=== PATIENT | male | born 1975 | race Caucasian/White ===

== ENCOUNTER 2019-03-11 10:49 | Inpatient (IN) | payer OTHER ==
[~2019-03-11 10:49] MED LIST: EPINEPHrine SYR 0.1MG/ML* SYRINGE ONE
[2019-03-11] MEDS ORDERED: Calcium CHLORIDE 10% SYRINGE* 1 GM/10 ML ONE (10:50)
[2019-03-11] MEDS ORDERED: Amiodarone IV VIAL* 50 MG/ML 3 ML VIAL (150 MG) ONE (10:54)
[2019-03-11] MEDS ORDERED: Dextrose 50% Syringe 50 ML* 25 GM/50 ML SYRINGE ONE (10:56)
[2019-03-11] MEDS ORDERED: Lidocaine 2% (CARDIAC)* 20 MG/ML 5 ML SYRINGE (100 MG) ONE ×4 (11:00→12:55)
--- NOTE | 2019-03-11 11:01 | ED ---
Cardiac Resuscitation - HPI Summary HPI Summary: A 44 y/o male brought in by [facility] presents to [facility] with a chief complaint of an ABC alert that was called at 10:41 and EMS arrived in the ED at 10:47. The patient was intubated in the field and went into V-fib en route. Per EMS, the patient was shocked three times and given epi. The EKG reportedly showed a possible inferior infarct. CPR was performed en route and continued in the ED. Dr. Jean confirmed intubation with direct visualization. Per police records clerk, the patient was complaining of CP before he dropped, fell and hit his head. CPR was reportedly not performed until 5 minutes after the patient collapsed when EMS arrived on the scene. Central line had begun to be placed at 11:13. . - History of Current Complaint Stated Complaint: ABC Hx Obtained From: EMS Hx From Patient Unobtainable Due To: Extremis Onset/Duration: Minutes/Hours: Arrest Witnessed: Yes - Allergies/Home Medications Allergies/Adverse Reactions: Allergies Allergy/AdvReac Type Severity Reaction Status Date / Time No Known Allergies Allergy Verified 03/11/19 11:24 Home Medications: Home Medications Cyclobenzaprine TAB* [Flexeril 10 MG TAB*] 10 mg PO TID 03/11/19 [History Confirmed 03/11/19] - Past Medical History Past Medical History: Unobtainable Due to Extremis - Family History Family History: Unobtainable Due to Extremis - Social History Social History: Unobtainable Due to Extremis - Review of Systems Review of Systems: Unobtainable Due to Extremis, Other: - Pt reportedly complained of CP before he collapsed Physical Examination - Summary Physical Exam Summary: Appearance: Unresponsive, CPR in progress Skin: Warm, dry, no obvious rash Eyes: Pupils fixed and dilated ENT: trachea midline Neck: Supple, nontender, no JVD. Respiratory: Intubated (being bagged) Cardiovascular: No pulses palpable Abdomen: Soft, ND Musculoskeletal: No signs of trauma Neurological: unresponsive Psychiatric: deferred - Physical Examination Triage Information Reviewed: Yes Procedures - Central Line Right Femoral Central Line Lumen: triple Central Line Procedure: betadine prep, sterile drapes applied, sterile dressing applied Central Line Position: femoral (R) Complications: none Central Line Post Position: sutured, good blood return Diagnostics - Laboratory Result Diagrams: 03/11/19 11:38 03/11/19 11:38 Lab Statement: Any lab studies that have been ordered have been reviewed, and results considered in the medical decision making process. - Radiology CXR Radiology Interpretation Completed By: Radiologist Summary of Radiographic Findings: 1. Normally positioned endotracheal tube. 2. The enteric tube courses into the stomach and out of [id number]. 3. Right greater than left perihilar predominant airspace opacification which could be. related to developing pulmonary edema or infiltrate. ED physician has reviewed this imaging report. - EKG 11:09 Cardiac Rate: Other Rate Summary of EKG Findings: EKG at 11:09 showed Wide QRS tachy arrhythmia at 80 bpm. Re-Evaluation - Re-Evaluation First Eval Re-Evaluation Time: 11:57 Change: Improved Comment: After ROSC patient moving arms and head. Updated the patient's about the situation. She reports that the patient had been complaining of chest pain for the past several weeks but had not sought medical attention. To be placed on propofol Second Eval Re-Evaluation Time: 12:31 Change: Improved Comment: When stable check a CTA chest for PE, as well as CT head given altered mental status and possible fall. manager assurance paged and aware patient for possible laboratory tech Third Eval Re-Evaluation Time: 12:36 Change: Unchanged Comment: ABC alert was called again, patient in vtach, shocked at 200J x1, back in wie QRS. Going to laboratory tech Cardiac Resus. Course/Dx - Course Assessment/Plan: Cardiac arrest. [id number] gentleman presents in cardiac arrest. On arrival to emergency department CPR in progress, V. fib on the monitor, please see note regarding timing. Patient given 2 bags saline, D50, 3 lidocaine, 1 Amio, 4 Epi, 3 Lido, 1 1g of calcium. Obtained ROSC, post rosc EKG with a wide QRS tachycardia arrhythmia. No obvious STEMI. Will touch base with interventional cardiology regarding Department Assistant. ICU attending at it. Central and arterial lines placed. Patient on amiodarone drip as well as Levophed. To be admitted to the ICU. CXR w pulm edema/aspiration. - Diagnoses Provider Diagnoses: Cardiac arrest - Provider Notifications Discussed Care Of Patient With: Devin Cheek Time Discussed With Above Provider: 11:45 Instructed by Provider To: Admit As Inpatient - Critical Care Time Critical Care Time: 30-74 min - 60 mins Discharge - Sign-Out/Discharge Documenting (check all that apply): Patient Departure - admit Patient Received Moderate/Deep Sedation with Procedure: No - Discharge Plan Condition: Critical Disposition: ADMITTED TO [facility] - Billing Disposition and Condition Condition: CRITICAL Disposition: Admitted to [facility] - Attestation Statements Document Initiated by Rubene: Yes Documenting Scribe: Bryan Kraft Provider For Whom Shaye is Documenting (Include Credential): Prabhakar Jean MD Scribe Attestation: IBryan, scribed for Prabhakar Jean MD on 03/11/19 at 1333. Scribe Documentation Reviewed: Yes Provider Attestation: The documentation as recorded by the Bryan montez accurately reflects the service I personally performed and the decisions made by , Prabhakar Jean MD Status of Scribe Document: Viewed
[2019-03-11] MEDS ORDERED: NS 0.9% 1000 ML** 1,000 ML IV ONE ×2 (11:32→11:56)
[2019-03-11] MEDS ORDERED: Propofol* 500 MG/50 ML BTL ONE (11:44)
[2019-03-11 11:56] LABS: Hematocrit 47 % (42-52); Hemoglobin 15.4 g/dL (14.0-18.0); Mean Corpuscular HGB Conc 33 g/dL (31-36); Mean Corpuscular Hemoglobin 31 pg (27-31); Mean Corpuscular Volume 96 fL (80-94); Platelet Count 163 10^3/uL (150-450); Red Blood Count 4.94 10^6 /uL (4.18-5.48); Red Cell Distribution Width 14 % (10-15); White Blood Count 19.4 10^3/uL (3.5-10.8)
[2019-03-11] MEDS ORDERED: Magnesium Sulfate 2 GM IV* 2 GM/50 ML BAG IVPB ONE (11:58)
[2019-03-11] MEDS ORDERED: Amiodarone 360 MG IVPREMIX* 360 MG/200 ML BAG IV ONE ×2 (11:59→12:06)
[2019-03-11] MEDS ORDERED: Norepinephrine 16MCG/ML IVPRE* 4,000 MCG/250 ML BAG IV SCH ×2 (12:00→15:55)
[2019-03-11] MEDS ORDERED: Propofol* 100 ML IV SCH ×2 (12:00→15:55)
[2019-03-11] MEDS ORDERED: Amiodarone 360 MG IVPREMIX* 360 MG/200 ML BAG IV SCH ×2 (12:00→18:00)
[2019-03-11] MEDS ORDERED: EPINEPHrine SYR 0.1MG/ML* SYRINGE ONE (12:02)
[2019-03-11 12:07] LABS: Albumin 2.9 g/dL (3.2-5.2); CO2 Carbon Dioxide 20 mmol/L (22-32); Calcium 9.7 mg/dL (8.6-10.3); Chloride 98 mmol/L (101-111); Sodium 140 mmol/L (135-145)
[2019-03-11] MEDS: Magnesium Sulfate 2 GM IV* 2 GM/50 ML BAG IVPB ONE ×2 (12:10→12:14)
[2019-03-11 12:13] LABS: ALT 127 U/L (7-52); Albumin/Globulin Ratio 1.3 (1-3); Alkaline Phosphatase 128 U/L (34-104); BUN/Creatinine Ratio 12.3 (8-20); Blood Urea Nitrogen 20 mg/dL (6-24); Creatine Kinase 211 U/L (10-223); EGFR African American 56.2 (>60); EGFR Non-African American 46.4 (>60); Globulin 2.2 g/dL (2-4); Glucose 497 mg/dL (70-100); Total Protein 5.1 g/dL (6.4-8.9)
[2019-03-11 12:14] LABS: Activated Partial Thrombo Time 58.6 seconds (26.0-38.0); INR 1.16 (0.82-1.09)
[2019-03-11 12:17] LABS: CKMB ng/mL 9.9 ng/mL (0.6-6.3)
[2019-03-11 12:18] LABS: Anion Gap 22 mmol/L (2-11); Troponin I 0.71 ng/mL (<0.04)
[2019-03-11 12:27] LABS: ABS Basophils 0.1 10^3/ul (0-0.2); ABS Eosinophils 0.7 10^3/ul (0-0.6); ABS Lymphocytes 8.9 10^3/ul (1.0-4.8); ABS Monocytes 0.4 10^3/ul (0-0.8); ABS Neutrophils 9.3 10^3/ul (1.5-7.7); Eosinophil % 3.4 %; Lymphocyte % 45.7 %; Nucleated Red Blood Cells % 0.1
[2019-03-11] MEDS ORDERED: Sodium Bicarbonate 8.4% IV* 50 ML VIAL IV ONE ×2 (12:27)
[2019-03-11 12:42] LABS: TSH (Thyroid Stimulating Horm) 11.25 mcIU/mL (0.34-5.60)
[2019-03-11] MEDS ORDERED: Amiodarone IV VIAL* 0 ML ONE (12:42)
[2019-03-11] MEDS ORDERED: Sodium Bicarbonate 8.4%* 50 ML SYRINGE ONE (12:49)
[2019-03-11] MEDS ORDERED: Ticagrelor* 90 MG TAB PO ONE (12:52)
[2019-03-11] MEDS ORDERED: Aspirin EC TAB* 81 MG TAB.EC ONE (12:52)
[2019-03-11] MEDS ORDERED: Heparin 2 UNITS/ML IVPREMIX* 4,000 UNIT/2,000 ML BAG IV ONE (13:03)
[2019-03-11] MEDS ORDERED: Lidocaine 1% INJ* 10 MG/ML 30 ML SDV ONE (13:04)
[2019-03-11] MEDS ORDERED: Iodixanol 320 (CONTRAST) 100 ML SDV ONE ×4 (13:04→14:53)
[2019-03-11] MEDS ORDERED: Propofol* 100 ML ONE (13:04)
[2019-03-11] MEDS ORDERED: VERAPAMIL 2.5 MG/ML 2 ML VIAL ** 5 mg/2 ml ONE (13:08)
[2019-03-11] MEDS ORDERED: Heparin 2 UNITS/ML IVPREMIX* 3,000 UNIT/1,500 ML BAG IV ONE (13:08)
[2019-03-11] MEDS ORDERED: nitroGLYCERIN DRIP* 0 MCG/0 ML BTL ONE (13:08)
[2019-03-11] MEDS ORDERED: Heparin(*) 1000 UNIT/ML 10 ML VIAL CATH LAB IV ONE ×2 (13:08→13:50)
[2019-03-11] MEDS ORDERED: VECURONIUM BROMIDE 10 MG INJ ONE (13:10)
[2019-03-11] MEDS ORDERED: Norepinephrine 16MCG/ML IVPRE* 4,000 MCG/250 ML BAG IV ONE (13:23)
[2019-03-11] MEDS ORDERED: Amiodarone IV VIAL* 3 ML ONE (14:20)
[2019-03-11] MEDS ORDERED: Adenosine* 3 MG/ML VIAL ONE (14:37)
[2019-03-11] MEDS ORDERED: VASOPRESSIN 20 UNITS/ML 1 ML VIAL ONE ×2 (14:45→14:47)
[2019-03-11] MEDS ORDERED: NitroPRUSSide* 25 MG/ML 2 ML VIAL IV ONE (14:45)
[2019-03-11] MEDS ORDERED: Eptifibatide IV (Load dose)(*) 2 MG/ML 10 ml VIAL ONE (14:56)
[2019-03-11] MEDS ORDERED: Eptifibatide (*) 100 ML ONE ×2 (14:56→19:30)
[2019-03-11] MEDS ORDERED: Vasopressin* 100 UNITS in D5W 250 ML BAG* 245 ML IV SCH ×2 (15:00→15:55)
--- NOTE | 2019-03-11 15:12 | ECHO ---
*[facility]* [place] [address] Fax #: [phone] Limited Transthoracic Echocardiogram Patient: Gideon Newby : 1975 Study Date: 03/11/2019 Age: 44 Gender: M HR: Height: 70 in /177.8 cm BSA: 2.17 m^2 Weight: 219.5 lb /99.8 kg BMI: 31.6 kg/m^2 *Concrete Bucket Loader: Justina Duffy [facility] *Reading Physician: * Jameel Loera MD Indications: Cardiac Arrest. History: No known history at this time. Conclusions Summary: - Left ventricle: The cavity size is normal. Wall thickness is mildly increased. Systolic function is severely reduced. The estimated ejection fraction is 20-25%. Severe diffuse hypokinesis with regional variations. - No hemodynamic significant mitral regurgitation on limited imaging noted. Recommendations: Patient with ACS and cardiac arrest. Limited study. Study data: Transthoracic echocardiogram, limited study. Procedure: Transthoracic echocardiography was performed. Image quality was adequate. Location: Emergency department. Patient status: Inpatient. Patient room number: 14. Findings Left ventricle: The cavity size is normal. Wall thickness is mildly increased. Systolic function is severely reduced. The estimated ejection fraction is 20-25%. Severe diffuse hypokinesis with regional variations. Measurements Left ventricle Value Ref Right ventricle Value Ref CHERI, LAX 4.2 cm 4.2 - 5.8 CHERI, LAX 2.1 cm ESD, LAX 3.4 cm 2.5 - 4.0 FS, LAX (L) 20 % 25 - 43 Left atrium Value Ref PW, ED, LAX (H) 1.2 cm 0.6 - 1.0 AP dim, ES (L) 2.70 cm 3.00 - 4.00 PW/ID, ED 0.34 --------- Ventricular septum Value Ref IVS, ED (H) 1.4 cm 0.6 - 1.0 Legend: (L) and (H) mariano values outside specified reference range. Prepared and electronically signed by Jameel Loera MD 03/11/2019 15:11
[2019-03-11] MEDS ORDERED: Piperacillin/Tazobac ADVAN(*) 3.375 GM in NS 0.9% 100 ML* 100 ML IVPB ONE (15:36)
[2019-03-11] MEDS ORDERED: Atorvastatin* 80 MG TAB PO ONE (15:49)
[2019-03-11] MEDS ORDERED: Nitroglycerin TAB 0.4 MG* 0.4 MG TAB SL PRN (15:49)
[2019-03-11] MEDS ORDERED: Acetaminophen ADULT LIQ* 650 MG/20.3 ML UDC G TUBE PRN (15:53)
[2019-03-11] MEDS ORDERED: fentaNYL* 50 MCG/ML 2 ML VIAL (100 MCG VIAL) IV PRN (15:56)
[2019-03-11] MEDS ORDERED: LORazepam INJ* 2 MG/ML 1 ML VIAL IV PUSH PRN (15:56)
[2019-03-11] MEDS ORDERED: Lorazepam PYXIS KEY PRN (15:57)
[2019-03-11] MEDS ORDERED: Meperidine Ampule* 100 MG/2 ML AMPUL IV SLOW PU PRN (15:58)
[2019-03-11] MEDS ORDERED: NS 0.9% 1000 ML** 1,000 ML IV SCH (16:00)
[2019-03-11] MEDS ORDERED: Chlorhexidine MOUTHWASH 0.12%* 15 ML UDC TOPICAL SCH (16:00)
--- NOTE | 2019-03-11 16:03 | HP ---
H&P (Free Text) History and Physical: History and Physical -- Critical Care Limitations in history/physical: intubated, post arrest HPI: 44y M with no pmhx; had complaints of chest pain intermittently for weeks. Today reported to in morning he had chest pain, supposedly recieved ASA at work. At work he had continued chest pain and was going to be given tylenol. He was then witnessed to collapse at [employer] at work, hit his head on the ground. He was unresponsive, EMS called, responded in a few min, found to be in VT/VF, CPR started, totaled for 15min en route to [facility] ER. in ER he was continued with CPR, multiple epi/calclium/amio given for VT/VF and defibrillated , intubated. Almost 30-40min of additional ER CPR done with ROSC achieved. He was starting to move, dilated but more reactive pupils. Intermittent VF again requiring more defibrillation in ER. Interventional cardiology called for suspected ACS, EKG showed wide complex but no clear ST changes. Given history he was given asa/brillinta and taken to director of laboratory operations. Found to have occluded pLAD 100%, PCI with SHALOM to pLAD x1 and SHALOM x1 to mLAD done, reoccluded pLAD stent, IABP placed, given integrillin. ED/floor Course: as above ROS: ROS unable to be obtained 2/2 to intubated/sedated/unresponsive state PMHx: none PSHx: none Family History: none significant Social History: , 5 kids; social alcohol, ex-smoker in teenage years. Allergies: NKDA Home Medications: Cyclobenzaprine TAB* [Flexeril 10 MG TAB*] 10 mg PO TID 03/11/19 [History Confirmed 03/11/19] Tele: Vt/VT in ER, NSR Vitals: Vital Signs Temp 96.4 F 03/11/19 13:57 Pulse 127 03/11/19 13:57 Resp 24 03/11/19 13:57 BP 133/75 03/11/19 13:57 Pulse Ox 69 03/11/19 13:57 Intake & Output 03/10/19 03/11/19 03/11/19 18:59 06:59 18:59 Weight 99.79 kg O2/Vent: AC 30/600/+15/100% Infusions: levophed, vasopressin, propofol, AMio to be started, Integrillin to be started Current Medications: Acetaminophen (Tylenol Adult Liq*) 650 mg G TUBE Q4H PRN PRN Reason: .TEMP>TARGET Aspirin (Aspirin 81 Mg Chew Tab*) 81 mg PO DAILY [facility] Chlorhexidine Gluconate (Peridex Mouth Wash 0.12%*) 15 ml TOPICAL Q4H [facility] Fentanyl Citrate (Fentanyl*) 25 mcg IV Q2H PRN PRN Reason: .SHIVERING Heparin Sodium (Porcine) (Heparin Flush Picc/Ml/Cvc(*)) 0 ml FLUSH 0600,1800 [facility]; Protocol Amiodarone HCl (Nexterone 360 Mg/200 Ml Ivpremix*) 360 mg in 200 mls @ 33.333 mls/hr IV ONCE ONE Stop: 03/11/19 17:58 Last Admin: 03/11/19 12:23 Dose: 33.333 mls/hr Amiodarone HCl (Nexterone 360 Mg/200 Ml Ivpremix*) 360 mg in 200 mls @ 16.667 mls/hr IV Q12H [facility] Stop: 03/12/19 17:59 Piperacillin Sod/Tazobactam (Sod 3.375 gm/ Sodium Chloride) 100 mls @ 25 mls/ hr IVPB Q8H [facility] Norepinephrine Bitartrate (Levophed 16 Mcg/Ml Premix*) 4,000 mcg in 250 mls @ 18.75 mls/hr IV .INITIAL RATE [facility]; Protocol Propofol (Diprivan*) 100 mls @ 11.975 mls/hr IV .(Initial Rate) [facility]; Protocol Vasopressin 100 units/ (Dextrose) 250 mls @ 6 mls/hr IV Q41H [facility]; Protocol Sodium Chloride (Ns 0.9% 1000 Ml) 1,000 mls @ 75 mls/hr IV PER RATE [facility] Lorazepam (Ativan Inj*) 2 mg IV PUSH Q3H PRN PRN Reason: . Meperidine HCl (Demerol Ampule*) 25 mg IV SLOW PU Q1H PRN PRN Reason: .SHIVERING Miscellaneous (Ativan Pyxis Tripp) 1 ea N/A .PYXIS TRIPP PRN PRN Reason: PER PROTOCOL Nitroglycerin (Nitroglycerin Tab 0.4 Mg*) 0.4 mg SL Q5M PRN PRN Reason: ANGINA Ticagrelor (Brilinta*) 90 mg PO BID [facility] Physical Exam: Constitutional: intubated, sedated, no distress, no diaphoresis Head: normocephalic, atraumatic Eyes: no pallor, no icterus ENT: moist mucous membranes Neck: soft, supple, no jvd CVS: normal rate, regular, no murmur Resp: bilateral air entry, +rhales, no wheeze, no rhonchi, no acc muscle use Abdomen/GI: soft, nondistended, BS+ Ext/Msk: warm, pulses+, no edema Skin: intact, warm Neuro: intubated, sedated, pupils dilated but mildly reactive, gag+ in ER, cough + in ER, spontaneous movements, breathing over vent Labs: Laboratory Results - last 24 hr 03/11/19 03/11/19 03/11/19 11:38 11:38 11:38 WBC 19.4 H RBC 4.94 Hgb 15.4 Hct 47 MCV 96 H MCH 31 MCHC 33 RDW 14 Plt Count 163 MPV 9.0 Neut % (Auto) 48.0 Lymph % (Auto) 45.7 Redwood % (Auto) 2.3 Eos % (Auto) 3.4 Baso % (Auto) 0.6 Absolute Neuts (auto) 9.3 H Absolute Lymphs (auto) 8.9 H Absolute Monos (auto) 0.4 Absolute Eos (auto) 0.7 H Absolute Basos (auto) 0.1 Absolute Nucleated RBC 0.0 Immature Gran % 6.0 Neutrophils % 42.0 Band Neutrophils % 2.0 Lymphocytes % 46.0 Monocytes % 1.0 Eosinophils % 4.0 Basophils % 1.0 Myelocytes % 4.0 H Nucleated RBC % 0.1 Normal RBC Morphology Normal INR (Anticoag Therapy) 1.16 H APTT 58.6 H POC Activ Clotting Time D-Dimer, Quantitative > 1050 H Patient Temperature ABG pH ABG pH (Temp Correct) ABG pCO2 ABG pCO2 (Temp Corrct ABG pO2 ABG pO2 (Temp Correct ABG HCO3 ABG O2 Saturation ABG Base Excess Respiration Rate O2 Delivery Device Ventilator Type Vent Mode FiO2 Inspiratory Time PEEP Pressure Support Pressure Control EPAP IPAP BiPAP Sodium 140 Potassium TNP Chloride 98 L Carbon Dioxide 20 L Anion Gap 22 H BUN 20 Creatinine 1.63 H Est GFR ( Amer) 56.2 Est GFR (Non-Af Amer) 46.4 BUN/Creatinine Ratio 12.3 Glucose 497 H Lactic Acid Calcium 9.7 Magnesium TNP Total Bilirubin 0.20 AST TNP ALT 127 H Alkaline Phosphatase 128 H Total Creatine Kinase 211 CK-MB (CK-2) 9.9 H Troponin I 0.71 H* B-Natriuretic Peptide Total Protein 5.1 L Albumin 2.9 L Globulin 2.2 Albumin/Globulin Ratio 1.3 TSH 11.25 H Blood Type Antibody Screen 03/11/19 03/11/19 03/11/19 11:38 11:38 11:38 WBC RBC Hgb Hct MCV MCH MCHC RDW Plt Count MPV Neut % (Auto) Lymph % (Auto) Redwood % (Auto) Eos % (Auto) Baso % (Auto) Absolute Neuts (auto) Absolute Lymphs (auto) Absolute Monos (auto) Absolute Eos (auto) Absolute Basos (auto) Absolute Nucleated RBC Immature Gran % Neutrophils % Band Neutrophils % Lymphocytes % Monocytes % Eosinophils % Basophils % Myelocytes % Nucleated RBC % Normal RBC Morphology INR (Anticoag Therapy) APTT POC Activ Clotting Time D-Dimer, Quantitative Patient Temperature ABG pH ABG pH (Temp Correct) ABG pCO2 ABG pCO2 (Temp Corrct ABG pO2 ABG pO2 (Temp Correct ABG HCO3 ABG O2 Saturation ABG Base Excess Respiration Rate O2 Delivery Device Ventilator Type Vent Mode FiO2 Inspiratory Time PEEP Pressure Support Pressure Control EPAP IPAP BiPAP Sodium Potassium Chloride Carbon Dioxide Anion Gap BUN Creatinine Est GFR ( Amer) Est GFR (Non-Af Amer) BUN/Creatinine Ratio Glucose Lactic Acid 16.4 H* Calcium Magnesium Total Bilirubin AST ALT Alkaline Phosphatase Total Creatine Kinase CK-MB (CK-2) Troponin I B-Natriuretic Peptide 135 H Total Protein Albumin Globulin Albumin/Globulin Ratio TSH Blood Type B Negative Antibody Screen Negative 03/11/19 03/11/19 03/11/19 12:05 13:00 13:45 WBC RBC Hgb Hct MCV MCH MCHC RDW Plt Count MPV Neut % (Auto) Lymph % (Auto) Redwood % (Auto) Eos % (Auto) Baso % (Auto) Absolute Neuts (auto) Absolute Lymphs (auto) Absolute Monos (auto) Absolute Eos (auto) Absolute Basos (auto) Absolute Nucleated RBC Immature Gran % Neutrophils % Band Neutrophils % Lymphocytes % Monocytes % Eosinophils % Basophils % Myelocytes % Nucleated RBC % Normal RBC Morphology INR (Anticoag Therapy) APTT POC Activ Clotting Time 215 D-Dimer, Quantitative Patient Temperature Not Reportable Not Reportable ABG pH 7.04 L* 7.30 L ABG pH (Temp Correct) Not Reportable ABG pCO2 43 35 ABG pCO2 (Temp Corrct Not Reportable ABG pO2 71 L 43 L* ABG pO2 (Temp Correct Not Reportable ABG HCO3 10.2 L 17.7 L ABG O2 Saturation 91.9 L 73.6 L ABG Base Excess -18.6 L -8.4 L Respiration Rate 20 Not Reportable O2 Delivery Device vent vent Ventilator Type 500 Not Reportable Vent Mode cmv Not Reportable FiO2 100 Not Reportable Inspiratory Time Not Reportable Not Reportable PEEP 10 Not Reportable Pressure Support Not Reportable Not Reportable Pressure Control Not Reportable Not Reportable EPAP Not Reportable Not Reportable IPAP Not Reportable Not Reportable BiPAP Not Reportable Not Reportable Sodium Potassium Chloride Carbon Dioxide Anion Gap BUN Creatinine Est GFR ( Amer) Est GFR (Non-Af Amer) BUN/Creatinine Ratio Glucose Lactic Acid Calcium Magnesium Total Bilirubin AST ALT Alkaline Phosphatase Total Creatine Kinase CK-MB (CK-2) Troponin I B-Natriuretic Peptide Total Protein Albumin Globulin Albumin/Globulin Ratio TSH Blood Type Antibody Screen 03/11/19 03/11/19 13:59 14:20 WBC RBC Hgb Hct MCV MCH MCHC RDW Plt Count MPV Neut % (Auto) Lymph % (Auto) Redwood % (Auto) Eos % (Auto) Baso % (Auto) Absolute Neuts (auto) Absolute Lymphs (auto) Absolute Monos (auto) Absolute Eos (auto) Absolute Basos (auto) Absolute Nucleated RBC Immature Gran % Neutrophils % Band Neutrophils % Lymphocytes % Monocytes % Eosinophils % Basophils % Myelocytes % Nucleated RBC % Normal RBC Morphology INR (Anticoag Therapy) APTT POC Activ Clotting Time 393 D-Dimer, Quantitative Patient Temperature ABG pH 7.29 L ABG pH (Temp Correct) ABG pCO2 29 L ABG pCO2 (Temp Corrct ABG pO2 236 H ABG pO2 (Temp Correct ABG HCO3 16.2 L ABG O2 Saturation 100.0 H ABG Base Excess -11.2 L Respiration Rate O2 Delivery Device Ventilator Type Vent Mode FiO2 Inspiratory Time PEEP Pressure Support Pressure Control EPAP IPAP BiPAP Sodium Potassium Chloride Carbon Dioxide Anion Gap BUN Creatinine Est GFR ( Amer) Est GFR (Non-Af Amer) BUN/Creatinine Ratio Glucose Lactic Acid Calcium Magnesium Total Bilirubin AST ALT Alkaline Phosphatase Total Creatine Kinase CK-MB (CK-2) Troponin I B-Natriuretic Peptide Total Protein Albumin Globulin Albumin/Globulin Ratio TSH Blood Type Antibody Screen Imaging: CXR 03/11 - ett above meg, ngt+; pulmonary edema++ Assessment: 44y M with no pmhx; had complaints of chest pain intermittently for weeks. Today reported to in morning he had chest pain, supposedly recieved ASA at work. At work he had continued chest pain and was going to be given tylenol. He was then witnessed to collapse at [employer] at work, hit his head on the ground. He was unresponsive, EMS called, responded in a few min, found to be in VT/VF, CPR started, totaled for 15min en route to [facility] ER. in ER he was continued with CPR, multiple epi/calclium/amio given for VT/VF and defibrillated , intubated. Almost 30-40min of additional ER CPR done with ROSC achieved. He was starting to move, dilated but more reactive pupils. Intermittent VF again requiring more defibrillation in ER. Interventional cardiology called for suspected ACS, EKG showed wide complex but no clear ST changes. Given history he was given asa/brillinta and taken to director of laboratory operations. Found to have occluded pLAD 100%, PCI with SHALOM to pLAD x1 and SHALOM x1 to mLAD done, reoccluded pLAD stent, IABP placed, given integrillin. 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 -Cardiogenic Shock; s/p IABP 03/11 -Acute hypoxic respiratory failure, intubated 03/11 -JOSE -Metabolic acidosis/lactic acidosis -Elevated LFTs Plan: Neuro- -VT/VF arrest; ROSC+ ~1 hours -hemodyn stable, CT brain pending; plan for therapeutic hypothermia for neuro protection; target temp 35C -propofol for sedation; raas -5 -monitor for shivering; TTM protocol -neurochecks; neurology consult -Delirium prec CVS- -STEMI; s/p PCI as above; cont DAPT/statin -integrillin infusion for 6 hours -start heparin IV 500u/hr for IABP, increase 4 hrs after integrillin stopped -Maintain IABP 1:1 -Cont levophed and vasopressin -TTE reviewed in ER - new acute lv systolic dysfunction -check stat cbc now -no BB -trend trop/LA -Titrate Pressors to Maintain MAP>65 Resp- -intubated 100% fio2 peep 15 -CXR 8/2 with pulm edema -will need diuretics once stabilized -empiric aspiration abx ordered -abg a4h -Wean Fio2 to keep sat>92% -Bronchodilators PRN, Aspiration prec, Pulmonary Toilet -VAP bundle ID- afebrile. wbc elevated but may be from arrest/shock -LA elevated from shock -CXR with edema -empiric Zosyn for aspiration coverage (day#1) GI- -NPO -GI prophylaxis Renal- -JOSE; K okay; metabolic acidosis; all likely from acute shock/ischemic injury -may be underlying chronic? -check renal ultrasound -IVF PRN -q4h bmp -strict I/O, replete to keep K>4, Mg>2 -yoder as indicated Heme- hg stable, plt stable -DAPT for CAD/PCI; integrillin infusion for 6 hours -IV heparin to be started for IABP Endo- Maintain BG<200, insulin protocol as needed; check tsh/hga1c/lipid panel Musculsk- pressure ulcer prophylaxis. Bedrest. Wounds- none Nutrition-NPO DVT prophylaxis: SCD, IV heparin GI prophylaxis: h2b Central Line: Right fem TLC 8/2 Arterial Line:Right fem 8/2 sheath; left fem 8/2 IABP Yoder Cathetor: yes Disposition: Admit to ICU; expected LOS>2 midnights; Patient requires Critical Care/ICU for cardiac arrest, stemi, respiratory failure Patient Clinical Status: critical Code Status: full code Total Critical Care time is 90 minutes, excluding procedures/teaching Devin Cheek MD [employer] (Electronically Signed)
--- NOTE | 2019-03-11 16:26 | OP ---
Operative Report - Blank - Operative Report Date of Operation: 03/11/19 Note: Arterial Line Procedure Note ( IN ER) Indication: frequent arterial blood gases , invasive hemodynamic monitoring Diagnosis: cardiac arrest Performed by: Devin Cheek MD Consent: Emergent [place] Protocol: Time-out was performed and the correct patient and site were verified - Prior labs/history was reviewed prior to procedure - Full sterile precautions with chlorhexidine/full drapes/gowns/gloves utilized - Right femoral artery palpated with pulse+ - Vessel accessed with return of pulsatile blood. One attempt was made to access vessel. A cathetor was threaded over wire into vessel. Good arterial waveform was observed on monitor. - Arterial Catheter was sutured to site; dressing applied to site. EBL <5 cc No immediate complications noted, patient tolerated procedure well. Devin Cheek MD Finishing Supervisor [employer] (Electronically Signed)
[2019-03-11] MEDS ORDERED: Heparin DRIP 25,000 UNITS(*) 25,000 UNITS/500 ML BAG IV SCH (17:15)
--- NOTE | 2019-03-11 17:38 | PN ---
Progress Note - Progress Note Date of Service: 03/11/19 Note: DIscussion with cardiology, based on hemodynamic status, post arrest and cardiogenic tom state, optimal therapy would likely be evaluation for Impella placement for treatment of cardiogenic shock with possible ECMO. Dr Mayberry has discussed with [facility] about transfer for further cardiac mechanical support evaluation. THey have agreed to management and that transfer would be optimal for further evaluation for need of support. Patients notified and Dr Mayberry discussed with them, they are in agreement. Patient for transfer to [facility] [place], I talked to [facility] intenvist Dr Walker for acceptance. Air transport has been contacted and will be arranged. Devin Cheek MD [employer]
[2019-03-11 17:41] LABS: ABS Basophils 0.1 10^3/ul (0-0.2); ABS Eosinophils 0.2 10^3/ul (0-0.6); ABS Monocytes 1.7 10^3/ul (0-0.8); ABS Neutrophils 36.7 10^3/ul (1.5-7.7); Eosinophil % 0.4 %; Hematocrit 49 % (42-52); Hemoglobin 16.4 g/dL (14.0-18.0); Mean Corpuscular HGB Conc 34 g/dL (31-36); Mean Corpuscular Hemoglobin 31 pg (27-31); Mean Corpuscular Volume 92 fL (80-94); Mean Platelet Volume 8.6 fL (7.4-10.4); Platelet Count 278 10^3/uL (150-450); Red Blood Count 5.32 10^6 /uL (4.18-5.48); Red Cell Distribution Width 14 % (10-15); White Blood Count 40.7 10^3/uL (3.5-10.8)
[2019-03-11 17:47] LABS: ALT 230 U/L (7-52); Albumin/Globulin Ratio 1.4 (1-3); Alkaline Phosphatase 124 U/L (34-104); BUN/Creatinine Ratio 17.6 (8-20); Blood Urea Nitrogen 30 mg/dL (6-24); Calcium 7.6 mg/dL (8.6-10.3); Chloride 109 mmol/L (101-111); Cholesterol 154 mg/dL; EGFR African American 53.5 (>60); EGFR Non-African American 44.2 (>60); Globulin 2.1 g/dL (2-4); Glucose 336 mg/dL (70-100); HDL Cholesterol 26.4 mg/dL; LDL Cholesterol 71 mg/dL; Sodium 137 mmol/L (135-145); Total Protein 5.1 g/dL (6.4-8.9); Triglycerides 281 mg/dL
--- NOTE | 2019-03-11 17:50 | DS ---
SEE H&P from [facility] Day
[2019-03-11 17:54] LABS: Troponin I > 79.00 ng/mL (<0.04)
[2019-03-11 17:55] LABS: CO2 Carbon Dioxide 14 mmol/L (22-32)
[2019-03-11 17:56] LABS: Anion Gap 14 mmol/L (2-11)
[2019-03-11 18:02] LABS: Urine Appearance Cloudy; Urine Bacteria 3+ (Absent); Urine Bilirubin Negative (Negative); Urine Blood 3+ (Negative); Urine Color Yellow; Urine Glucose 3+(>=500 mg/dL) (Negative); Urine Ketones Trace (Negative); Urine Nitrite Negative (Negative); Urine Protein 2+(100 mg/dL) (Negative); Urine Red Blood Cell 3+(>10/hpf) (Absent); Urine Specific Gravity 1.056 (1.010-1.030); Urine Squamous Epithelial Cell Present (Absent); Urine Urobilinogen Negative (Negative); Urine White Blood Cell 3+(>20/hpf) (Absent)
[2019-03-11 18:21] LABS: Urine Benzodiazepine Screen None Detected (None Detect); Urine Opiates Screen None Detected (None Detect)
[2019-03-11 18:52] LABS: CKMB ng/mL > 304.0 ng/mL (0.6-6.3)
[2019-03-11 20:17] VITALS: BP 93/51
[2019-03-11] MEDS ORDERED: Ticagrelor* 90 MG TAB PO SCH (21:00)
[2019-03-12] MEDS ORDERED: Piperacillin/Tazobac ADVAN(*) 3.375 GM in NS 0.9% 100 ML* 100 ML IVPB SCH ×2
[2019-03-12] MEDS ORDERED: Famotidine IV* 10 MG/ML 2 ML (20 mg) IV SLOW PU SCH (09:00)
[2019-03-12] MEDS ORDERED: Aspirin 81 mg CHEW TAB* 81 MG TAB.CHEW PO SCH ×2 (09:00)
[2019-03-12] MEDS ORDERED: Ticagrelor* 90 MG TAB PO SCH (09:00)
--- NOTE | 2019-03-12 10:20 | CONS ---
CC: Dr. Cristo Bills, telephone number [phone] INTERVENTIONAL CARDIOLOGY CONSULT REPORT: DATE OF CONSULT: 03/11/19 INDICATION FOR THE CONSULT: Asked by Dr. Jameel Loera (noninterventional marine biologist) to come see t he patient emergently as well as asked by Dr. Devin Cheek (bag patcher) with the patient status pos t out of hospital cardiac arrest, multiple further VFib arrests both en route and in the emergency ro om, now with islam of spontaneous circulation, still unresponsive, and for consideration in pro ceeding into the cardiovascular laboratory. HISTORY OF PRESENT ILLNESS: The patient is a 44-year-old gentleman who apparently, according to his , has been having chest discomfort for the past 2 months. He did not seek medical attention desp ite her advice to do so. Eventually, he was planning to maybe go to his family doctor, but apparent at work he was complaining about chest discomfort and subsequently had a witnessed arrest. Unfortuna tely, no CPR was done. It is unclear exactly how much time occurred before the CPR was started. The emergency room physician and other physicians in the emergency room seemed to suggest it was 5 minut es. We do not know if that is accurate. Once the EMS was presented, CPR was begun. He was found to be in VFib, eventually defibrillated and initially got back some type of a rhythm and an EKG demonst rated a wide complex irregular heart rhythm. On the way into the hospital, the patient deteriorated into ventricular fibrillation and could not be defibrillated back to a sinus rhythm. A CPR was insti tuted, and on presentation in the emergency room, he was found to be in VFib arrest. According to [facility] emergency room physician, Dr. Prabhakar Jean, she worked on him for 35 to 40 minutes before obtai jacinda any type of stable rhythm with a blood pressure requiring pressor support. He was intubated as well. A bedside echocardiogram was performed showing global left ventricular systolic dysfunction. EF of 20% to 25% according to Dr. Jameel Loera's report. After a discussion with both the doctors, keagan heller had asked me to see the patient and the , decision was made to proceed to the cardiovascular la boratory. The patient had received 324 mg of aspirin and 180 mg of Brilinta via the NG tube prior to coming to the cardiovascular laboratory. According to the , he had no significant past medical history and was not taking any medications. FAMILY HISTORY: According to a brother, his father had a stroke in his 30s to 40s. SOCIAL HISTORY: According to the family, the patient did smoke and continued to smoke for some 20 ye ars and is actively smoking. REVIEW OF SYSTEMS: Unobtainable. PHYSICAL EXAM: Physical examination in the emergency room revealed a bedside blood pressure in the 8 0 to 90 range. He was tachycardic to 120. Neck was supple. I could not assess for JVP with him lyi ng down. Chest had coarse breath sounds bilaterally. Heart had distant heart sounds in general. Ab domen was obese, soft, and nontender. Extremities without edema. Femoral pulses were diminished, bu t present without bruit. Neuro: The patient was unresponsive. Musculoskeletal: There was no active purposeful movement. DIAGNOSTIC STUDIES/LAB DATA: Electrocardiogram: The first one available from 03/11/19 from 11:09 sh owed wide complex question accelerated ventricular versus profound intraventricular conduction delay. I could not see any definitive atrial activity. Reportedly, there was another EKG that demonstrate d the same type findings which was unavailable at that time when I initially saw him. Initial blood gas was pH 7.04, O2 of 71, CO2 of 43 (Dr. Devin Cheek was working on correcting that with bicarb). Initial hemoglobin and hematocrit 15.4 and 47, white count of 19,400, platelet count 163,000. Sodi um 140, chloride 98, bicarb 20, BUN and creatinine of 20 and 1.63, and a glucose of 497. Lactic acid was 16.4. Initial troponin 0.7. Limited echocardiogram as described above EF 20% to 25% with severe diffuse hypokinesis, no hemodynamically significant mitral regurgitation. OVERALL ASSESSMENT: The patient now presents as a 44-year-old gentleman status post cardiac arrest w ith multiple ventricular fibrillation arrests with prolonged resuscitation attempts, now with return of spontaneous rhythm. Discussion with all has been made, and at this point, given his young age and return of spontaneous rhythm even though he presents in cardiogenic shock with pressor therapy utili zed, we will proceed to the cardiovascular laboratory and most likely place intraaortic balloon pump and see if there is any focal stenotic lesions or total occlusions that we can attempt to revasculari ze. In general, his overall prognosis is not good, but every aggressive measure will be made. His r espirator will be managed by the bag patcher as well as his pressor therapy. Dr. Devin Cheek was p resent in the emergency room and will accompany the patient to the cardiovascular laboratory. [id number]/[facility] #: [id number]
--- NOTE | 2019-03-12 10:53 | CATH ---
CC: Dr. Cristo Bills, telephone number [phone] CARDIAC CATHETERIZATION AND INTERVENTIONAL REPORT: DATE OF PROCEDURE: 03/11/19 INDICATION FOR THE PROCEDURE: The patient with out of hospital cardiac arrest with multiple ventricular fibrillation arrests, with amish of spontaneous cardiac circulation, but unresponsive, now asked to perform cardiac catheterization in light of grossly abnormal EKG with wide complex QRS to rule out the presence of critical coronary artery disease in the presence of cardiogenic requiring intravenous pressor therapy and consideration for intraaortic balloon pump. PROCEDURE: Coronary arteriography, insertion of the intraaortic balloon pump, balloon angioplasty, and placement of a 3.0 x 18 mm long Xience Edith drug- eluting stent in the proximal to ostial LAD and placement of a 2.5 x 16 mm long Synergy drug-eluting stent in the mid LAD with post-dilations made of the proximal stent to 3.2 to 3.3 mm and the mid stent to 2.65 to 2.75 mm. EQUIPMENT UTILIZED: 1. The sheaths utilized were a 6.5-Liberian Merit Prelude sheath in the left femoral artery, a 6.5-Liberian sheath in the right femoral artery (prior arterial sheath was exchanged for this sheath). 2. Diagnostic coronary catheters included 5-Liberian FL4 curve and a 5-Liberian FR4 curve catheter. 3. Intraaortic balloon was a 40 cm Arrow intraaortic balloon catheter. 4. Guiding catheters utilized was a CLS3 6-Liberian curved catheter. 5. Diagnostic guidewire utilized was a J-tipped 175 length guidewire. 6. Interventional wires included two 190 cm All Star wires, a 300 length All Star wire, 190 length BMW wire. 7. Angioplasty catheters utilized were a 1.5 x 8 mm long catheter to document intraluminal location, a 2.5 x 15 and 2.5 x 20 mm long Emerge balloon, a 3.0 x 15 mm long NC Emerge balloon. 8. Thrombectomy catheter was a Pronto V4 extraction catheter. 9. Stents utilized were a 3.0 x 18 mm long Xience Edith drug-eluting stent and a 2.5 x 16 mm long Synergy drug-eluting stent. PRE-CARDIAC CATHETERIZATION LABORATORY RESULTS: Hemoglobin and hematocrit 15.4 and 47, a platelet count of 163,000. BUN and creatinine of 20 and 1.6. Sodium 140, potassium was not available at the time, chloride 98, bicarb 20. INR 1.16. Troponin 0.7. MEDICATIONS GIVEN: The patient came up to the cardiac catheterization laboratory already on amiodarone intravenously as well as propofol as well as Levophed. He had already received aspirin and Brilinta via the NG tube. Additional medications given in the optical lab technician included heparin a total of 11,000 guided by ACT results. He received amiodarone extra bolus of 150 mg IV, lidocaine 100 mg IV. During the case, he had low-dose adenosine and Nipride intracoronary for slow flow. He had received vasopressin therapy under Dr. Devin Cheek's (shoe shanker) guidance. He received Integrilin bolus and an Integrilin drip as well. CONSENT: Consent for the procedure was obtained via his given the patient' s dire condition. DESCRIPTION OF PROCEDURE: The patient was brought to the cardiovascular laboratory, where a formal time-out was performed. He was prepped and draped in a sterile fashion. The left groin area was anesthetized with 1% lidocaine, the left femoral artery was cannulated, and a 6.5-Liberian Merit sheath was placed. Coronary arteriography was then performed. Following this, the decision was made to intervene into the totally occluded ostial LAD. The right femoral arterial sheath that was already in place (microcatheter) was exchanged for a 6.5-Liberian Merit sheath. Intraaortic balloon pump was placed from the left femoral approach. The patient received 8000 units of heparin. ACT was monitored, found to be in slightly low range, as such additional heparin was given to obtain therapeutic range. Guiding views were obtained followed by wiring of the left anterior descending artery with some degree of difficulty. Of note, a small balloon catheter was utilized to demonstrate the presence of intraluminal placement. Thrombectomy was performed to the ostial to proximal LAD area. Balloon angioplasty was performed to the ostium. Stent placement was performed to the ostial to proximal LAD. Following this, dual wiring of LAD and diagonal was performed and primary stenting of the mid LAD was performed. Of note, despite therapeutic heparinization, occlusion of the ostial to proximal LAD stent occurred. The proximal stent showed thrombosis. Repeat thrombectomy was performed as well as aggressive dilatation of the prior stent with high pressure balloon inflations. Following this and injections of Nipride therapy and adenosine therapy, low-dose, IZABELA-3 flow was achieved. The artery was assessed with the wires removed. At that point in time, sheaths were sutured in place and the patient was transported to the intensive care unit under Dr. Devin Cheek's constant guidance during the case. Radiation exposure included 32.9 minutes of fluoro time. Air kerma radiation was 3468 mGy. DAP radiation was 21,261 microgray/m2. RESULTS: CORONARY ARTERIOGRAPHY: A. Left coronary artery: 1. Left main - widely patent. 2. Left anterior descending artery - totally occluded a very short distance after its ostium. On reconstitution of the vessel once open, there was the presence of what appeared to be a critical 85% to 90% lesion seen in the mid portion of the LAD after the diagonal branch. The diagonal branch was a large vessel that had diffuse distal disease. 3. Circumflex artery - a codominant vessel supplying several obtuse marginal branches and ending at a low lying posterior left ventricular branch that appeared to parallel the PDA. No significant disease was noted throughout the circumflex artery. B. Right coronary artery - a dominant vessel supplying the PDA, no posterior left ventricular branches were noted. There was no significant stenosis seen throughout the course of the vessel. INTERVENTION INTO LEFT ANTERIOR DESCENDING ARTERY: A. Ostial proximal LAD. Reconstitution of the totally occluded left anterior descending artery with thrombectomy, balloon angioplasty, and placement of a 3.0 x 18 mm long Xience Edith drug-eluting stent, postdilated to 3.2 to 3.3 mm with eventual IZABELA-3 flow. No dissection seen and 0% residual stenosis. B. Mid LAD - successful reduction of critical 85% to 90% mid LAD lesion with primary stenting utilizing a 2.5 x 16 mm long Synergy drug-eluting stent dilated to 2.65 mm with eventual IZABELA-3 flow. No dissection seen. 0% residual stenosis. ADDITIONAL DESCRIPTION OF EVENTS DURING THE CARDIAC CATHETERIZATION: Of note during the case, there were multiple episodes where the patient developed ventricular fibrillation arrest requiring defibrillation. Of note, each time, he was able to be successfully defibrillated with 1 shock to a sinus mechanism. Additional amiodarone and lidocaine therapy was given under Dr. Devin Cheek's (shoe shanker) guidance. Interestingly, once the artery was initially opened and time with it open had occurred, even with it thrombosing off again, his rhythm eventually stabilized with no further ventricular fibrillation and his wide-complex tachycardia became more narrowed in nature. In general, this was felt to be consistent with him eventually perfusing and his acidosis improving. Blood gases were obtained during the cardiac catheterization demonstrating improvement from his initial pH of 7.04 into the 7.3 range. OVERALL ASSESSMENT: Successful intervention into the left anterior descending artery as described above in patient with cardiogenic shock as well as profound cardiac rhythm disturbances. The patient will be brought to the intensive care unit under Dr. Devin Cheek's further management. Intravenous Integrilin will be administered for anywhere from 6 to 12 hours. Low-dose heparin IV will be maintained given the intraaortic balloon pump, which should be adjusted to a more full anticoagulation once the Integrilin is discontinued. Maintenance of dual antiplatelet therapy is paramount as well and should be given via the NG tube. A blood work will be obtained immediately as soon as possible in the intensive care unit in order to get further assessment of status including a lactic acid level and platelet level in light of the dual Integrilin bolus and the Integrilin entry level account executive. In general, his condition is critical. Exact description of the amount of time that the patient was down is still trying to be deciphered. The patient will be considered for euthermic versus hypothermic protocols by Dr. Devin Cheek. [id number]/[facility] #: [id number] [facility]
== END 2019-03-11 16:20 | disposition short-term general hospital (02) | DRG 270 ==
LOC: ED 10:49 → ICU 12:02
PROVIDERS: ADMIT Internal Medicine Critical Care Medicine; ATTEND Internal Medicine Critical Care Medicine
PROC: 027135Z Dilation of Coronary Artery, Two Arteries with Two Drug-eluting Intraluminal Devices, Percutaneous Approach (ICD-10-PCS; 2019-03-11)
PROC: 02C03ZZ Extirpation of Matter from Coronary Artery, One Artery, Percutaneous Approach (ICD-10-PCS; 2019-03-11)
PROC: 0BH17EZ Insertion of Endotracheal Airway into Trachea, Via Natural or Artificial Opening (ICD-10-PCS; 2019-03-11)
PROC: 3E033PZ Introduction of Platelet Inhibitor into Peripheral Vein, Percutaneous Approach (ICD-10-PCS; 2019-03-11)
PROC: 04HY32Z Insertion of Monitoring Device into Lower Artery, Percutaneous Approach (ICD-10-PCS; 2019-03-11)
PROC: 4A133B1 Monitoring of Arterial Pressure, Peripheral, Percutaneous Approach (ICD-10-PCS; 2019-03-11)
PROC: 4A133J1 Monitoring of Arterial Pulse, Peripheral, Percutaneous Approach (ICD-10-PCS; 2019-03-11)
PROC: 02HV33Z Insertion of Infusion Device into Superior Vena Cava, Percutaneous Approach (ICD-10-PCS; 2019-03-11)
PROC: 5A02210 Assistance with Cardiac Output using Balloon Pump, Continuous (ICD-10-PCS; principal; 2019-03-11 13:00)
DX: I47.2 Ventricular tachycardia (principal); R57.0 Cardiogenic shock; I21.3 ST elevation (STEMI) myocardial infarction of unspecified site; G93.40 Encephalopathy, unspecified; N17.9 Acute kidney failure, unspecified; E87.2 Acidosis; J81.1 Chronic pulmonary edema; T82.598A Other mechanical complication of other cardiac and vascular devices and implants, initial encounter; I49.8 Other specified cardiac arrhythmias; I46.9 Cardiac arrest, cause unspecified; I25.10 Atherosclerotic heart disease of native coronary artery without angina pectoris; I25.5 Ischemic cardiomyopathy; R79.89 Other specified abnormal findings of blood chemistry; Z87.891 Personal history of nicotine dependence; Z72.89 Other problems related to lifestyle; Z82.3 Family history of stroke; Y71.2 Prosthetic and other implants, materials and accessory cardiovascular devices associated with adverse incidents; Y92.239 Unspecified place in hospital as the place of occurrence of the external cause
CPT/HCPCS: 36415; 70450; 71045; 76937; 80053; 80061; 80307; 81003; 81015; 82550; 82553; 82803; 83036; 83605; 83880; 84100; 84443; 84484; 85025; 85060; 85347; 85379; 85610; 85730; 86850; 86900; 86901; 87086; 93005; 93308; 99285; A9270-GY; C1725; C1757; C1769; C1876; C1887; C9606-LD; J0153; J0171; J0282; J1327; J1644; J2543; J2704; J3475